=== PATIENT | female | born 1970 | race Two or more races ===

== ENCOUNTER 2017-03-20 15:18 | Emergency (ER) | payer OTHER ==
[~2017-03-20] VITALS: Ht 167.6 cm; Wt 77.1 kg
--- NOTE | ~2017-03-20 | US85 ---
[facility] A Service of [facility] & [facility] RADIOLOGY TEXT RESULTS PATIENT: CRISTOPHER TY LOCATION: [facility] : 66 UNIT #: [id number] AGE: [address]: Tone Maldonado DO SEX: F ORDER DR: [id number] [facility] [address] [place], [place] [address] [id number] E MR#: [id number] Acc #: [id number] NAME: CRISTOPHER TY : 1970 SEX: F STUDY DATE/TIME: 03/20/2017 16:12 UNIT: [facility] ROOM: STUDY DESCRIPTION: [facility] Veins Unilat or Ltd Stdy Attending Physician: Tone Maldonado D.O. Ordering Physician: Tone Maldonado D.O. Primary Care Physician: Armin Link M.D. MEDICAL IMAGING REPORT This report is preliminary unless electronic signature is present EXAM Left lower extremity venous ultrasound. HISTORY Left lower extremity pain for 1 week. TECHNIQUE Venous ultrasound examination of the left lower extremity was performed using grayscale, spectral Doppler and color flow Doppler imaging. FINDINGS The examination is negative. There is no evidence of left lower extremity deep venous thrombus from the groin to the lower calf. Visualized greater saphenous vein is also patent. IMPRESSION Negative examination. No evidence of left lower extremity deep venous thrombosis. Dictated by... Pipo George M.D. THIS IS AN ELECTRONICALLY VERIFIED REPORT Pipo George M.D. at 03/21/2017 10:06 PM DFL/benoit TD: 03/21/2017 17:05 JOB #: [id number] MEDICAL IMAGING REPORT Page 1 of 1 COPY
--- NOTE | ~2017-03-20 | CT2 ---
[facility] A Service [facility] RADIOLOGY TEXT RESULTS PATIENT: CRISTOPHER TY LOCATION: [facility] : 66 UNIT #: [id number] AGE: [address]: Tone Maldonado DO SEX: F ORDER DR: [id number] [place], [place] [address] [id number] E MR#: [id number] Acc #: [id number] NAME: CRISTOPHER TY : 1970 SEX: F STUDY DATE/TIME: 03/20/2017 18:09 UNIT: [facility] ROOM: STUDY DESCRIPTION: CT Abd and Pelv W Cont Attending Physician: Tone Maldonado D.O. Ordering Physician: Tone Maldonado D.O. Primary Care Physician: Armin Link M.D. MEDICAL IMAGING REPORT This report is preliminary unless electronic signature is present EXAM CT abdomen and pelvis. INDICATION Left lower quadrant abdominal pain for [address] of the abdomen and pelvis utilizing 100 mL Isovue-370 IV contrast. Coronal and sagittal reconstructions were obtained. This CT exam was performed with one or more of the following radiation dose reduction techniques: automatic exposure control, adjustment of mA and/or kV according to patient size, and iterative reconstruction. COMPARISON None available. FINDINGS ABDOMEN: The solid abdominal organs enhance normally. The gallbladder is not distended. The bowel is not dilated. The appendix is normal. The abdominal aorta is normal in caliber. PELVIS: No pelvic mass. The uterus and ovaries are within normal limits. Bladder is unremarkable. No enlarged pelvic or inguinal lymph nodes. No acute osseous abnormalities. IMPRESSION No acute findings in the abdomen and pelvis. Dictated by... [facility] A Service [facility] RADIOLOGY TEXT RESULTS PATIENT: CRISTOPHER TY LOCATION: [facility] : 66 UNIT #: [id number] AGE: [address]: Tone Maldonado DO SEX: F ORDER DR: Alvin Russell M.D. THIS IS AN ELECTRONICALLY VERIFIED REPORT Alvin Russell M.D. at 03/21/2017 7:50 PM RPAntonio/kendrick TD: 03/21/2017 18:04 JOB #: [id number] MEDICAL IMAGING REPORT Page 1 of 1 COPY
--- NOTE | ~2017-03-20 | CT71 ---
[facility] A Service of [facility] RADIOLOGY TEXT RESULTS PATIENT: CRISTOPHER TY LOCATION: [facility] : 66 UNIT #: [id number] AGE: [address]: Tone Maldonado DO SEX: F ORDER DR: [id number] [facility]. [place], [place] [address] [id number] E MR#: [id number] Acc #: [id number] NAME: CRISTOPHER TY : 1970 SEX: F STUDY DATE/TIME: 03/20/2017 18:05 UNIT: [facility] ROOM: STUDY DESCRIPTION: CT Head Wo Contrast Attending Physician: Tone Maldonado D.O. Ordering Physician: Tone Maldonado D.O. Primary Care Physician: Armin Link M.D. MEDICAL IMAGING REPORT This report is preliminary unless electronic signature is present EXAM CT head. INDICATION Headache and fever. Dizziness. TECHNIQUE CT of the head without contrast. This CT exam was performed with one or more of the following radiation dose reduction techniques: automatic exposure control, adjustment of mA and/or kV according to patient size, and iterative reconstruction. COMPARISON None available. FINDINGS Axial noncontrast images were obtained from the skull base to the vertex. Ventricular size and configuration are normal. There is no evidence of acute infarct or hemorrhage. There are no extra-axial fluid collections. No mass lesion or mass effect is seen. There are no skull fractures. IMPRESSION Normal noncontrast head CT. Dictated by... Alvin Russell M.D. THIS IS AN ELECTRONICALLY VERIFIED REPORT Alvin Russell M.D. at 03/21/2017 7:50 PM C/tmw [facility] A Service [facility] RADIOLOGY TEXT RESULTS PATIENT: CRISTOPHER TY LOCATION: [facility] : 66 UNIT #: [id number] AGE: [address]: Hottman,Tone M DO SEX: F ORDER DR: TD: 03/21/2017 17:51 JOB #: [id number] MEDICAL IMAGING REPORT Page 1 of 1 COPY
[2017-03-20 15:58] LABS: URINE SOURCE CLEAN CATCH
[2017-03-20 16:05] LABS: BASOPHIL% 0.8 % (0-2.5); EOSINOPHIL# 0.1 X10e3 (0-0.7); EOSINOPHIL% 1.9 % (0.0-7.0); HEMATOCRIT 35.7 % (35.0-45.0); LYMPHOCYTE% 35.9 % (17.0-45.0); MEAN CELL VOLUME 86.7 FL (83-96); MEAN CORPUSCULAR HGB CONC 33.4 g/dL (30-36); MEAN PLATELET VOLUME 8.2 FL (6.5-11.5); MONOCYTE# 0.5 X10e3 (0-1.0); MONOCYTE% 9.5 % (3.0-12.0); NEUTROPHIL# 2.9 X10e3 (1.5-7.1); NEUTROPHIL% 51.9 % (40-75); PLATELET COUNT 256 X10e3 (140-420); RED BLOOD COUNT 4.12 X10e (3.90-5.30); RED CELL DISTRIBUTION WIDTH 13.9 % (11.0-15.5); WHITE BLOOD COUNT 5.5 X10e3 (4.0-10.5)
[2017-03-20 16:07] LABS: DIFF IND NO
[2017-03-20 16:08] LABS: URINE APPEARANCE CLEAR; URINE BILIRUBIN NEG (NEG); URINE BLOOD TRACE (NEG); URINE COLOR YELLOW; URINE GLUCOSE NEG (NEG); URINE KETONE NEG (NEG); URINE LEUKOCYTE ESTERASE NEG (NEG); URINE NITRATE NEG (NEG); URINE PROTEIN NEG (NEG); URINE SPECIFIC GRAVITY 1.012 (1.003-1.035); URINE UROBILINOGEN 0.2 MG/DL (NEG)
[2017-03-20 16:11] LABS: URBCS1 AUWI 0-2 /[HPF] (0-2); URINE BACTERIA AUWI NEG (NEGATIVE); URINE SQUAMOUS EPITHELIAL CELL OCC /[HPF]; UWBCS1 AUWI 0-2 (0-5)
[2017-03-20 16:14] LABS: CULTURE INDICATED? NO
[2017-03-20 16:44] LABS: ALBUMIN SERUM 4.4 g/dL (3.5-5.0); BILIRUBIN, DIRECT 0.1 mg/dL (0.0-0.2); BILIRUBIN,INDIRECT 0.5 mg/dL (0.0-0.9); BILIRUBIN,TOTAL 0.6 mg/dL (0.2-2.0); BUN/CREATININE RATIO 15.71; CALCIUM SERUM 9.1 mg/dL (8.4-10.2); CREATININE SERUM 0.7 mg/dL (0.6-1.4); GLOM FILT RATE Estimated 102.5 mL/min (>60); POTASSIUM 3.6 mmol/L (3.5-5.1); PROTEIN TOTAL SERUM 7.7 g/dL (6.0-8.3)
[2017-03-20 20:21] LABS: POC - CKMB <1.0 ng/mL (0.0-7.9); POC - TROPONIN <0.05 ng/mL (<=0.05)
== END 2017-03-20 20:43 | disposition home or self-care (01) ==
LOC: CED 15:18
PROVIDERS: Emergency Medicine
DX: R51 Headache (principal); R10.9 Unspecified abdominal pain; M79.605 Pain in left leg
CPT/HCPCS: 36415; 70450; 74177; 80048; 80076; 81003; 82553; 83690; 84484; 84703; 85025; 87651; 93971; 96361; 96374; 99284; J1885; Q9967